=== PATIENT | female | born 1975 | race Caucasian/White ===

== ENCOUNTER 2016-05-04 16:45 | Emergency (ER) | payer OTHER, MEDICAID ==
[2016-02-20 10:51] VITALS: Ht 165.1 cm; Wt 53.5 kg
[~2016-05-04] VITALS: Ht 165.1 cm; Wt 53.5 kg
[~2016-05-04 16:45] MED LIST: ACET325T53 PO; AMLO5TAB4 PO; AMLO5TAB92 PO; ATOV750O4 PO; CALC0.258 PO; CALC667C PO; CAT.2 PO; CHOL2000 PO; DIVA250T34 PO; DOCU-144 PO; HYDR-1189 PO; HYDR-4100 PO; LUBI24CA5 PO; MORP2SYR2 IV; MYCO500T PO; NOR10 PO; ONDA4VIA53 IVP; PRED1TAB PO; PRED5TAB PO; PRO40 PO; SEVE800T8 PO; TACR1CAP PO; TEMA30CA5 PO; TRAM50TA92 PO; [UNRECOGNIZED DRUG - CODE] IVP
[2016-05-04 17:07] VITALS: BP 145/95; PULSE 96; RESP 20; TEMP 97.8; O2SAT 100
[2016-05-04] MEDS ORDERED: chlorproMAZINE HCL 50 MG/ 2 ML AMP IVP ONE (19:30)
[2016-05-04] MEDS ORDERED: DIPHENHYDRAMINE INJ 50 MG/ML VIAL IVP ONE (19:30)
[2016-05-04] MEDS ORDERED: NACL 0.9% 1,000 ML IV ONE (19:30)
[2016-05-04 19:51] LABS: BILIRUBIN,URINE NEGATIVE (NEGATIVE); BLOOD, URINE NEGATIVE (NEGATIVE); CLARITY/URINE CLEAR (CLEAR); GLUCOSE,URINE NEGATIVE (NEGATIVE); KETONES,URINE TRACE (NEGATIVE); LEUKOCYTE ESTERASE ,URINE NEGATIVE (NEGATIVE); NITRITE, URINE NEGATIVE (NEGATIVE); PROTEIN URINE NEGATIVE (NEGATIVE); UROBILINOGEN,URINE 0.2 (0.2-1.0)
[2016-05-04 20:02] LABS: COLOR,URINE STRAW (YELLOW)
[2016-05-04 20:55] LABS: HEMATOCRIT 37.9 % (36-48); HEMOGLOBIN 12.9 g/dL (12.0-16.0); MEAN CORPUSCULAR HEMOGLOBIN 29 pg (27-31); MEAN CORPUSCULAR HGB CONC 34 % (32-36); MEAN CORPUSCULAR VOLUME 85 fL (79.0-98.0); PLATELET COUNT (AUTO) 167 K/uL (130-430); RED BLOOD CELL COUNT(AUTO) 4.44 MIL/uL (4.2-6.2); RED CELL DISTRIBUTION WIDTH 12.6 % (9.0-15.0)
[2016-05-04 21:00] LABS: WHITE BLOOD COUNT (AUTO) 3.3 K/uL (4.8-10.8)
[2016-05-04 21:11] LABS: CALCIUM 9.3 mg/dL (8.4-11.0); CREATININE 0.84 mg/dL (0.55-1.30); POTASSIUM 4.5 mmol/L (3.5-5.1)
[2016-05-04 21:16] LABS: TOTAL BILIRUBIN 0.3 mg/dL (0.0-1.0); TOTAL PROTEIN, SERUM 7.7 g/dL (6.4-8.3)
[2016-05-04 21:23] LABS: ATYPICAL LYMPHOCYTES % 0 % (0-0); BAND % (MANUAL) 19 % (0-6); BASOPHILS % (MANUAL) 0 % (0-2); EOSINOPHILS % (MANUAL) 0 % (0-7); LYMPHOCYTES % (MANUAL) 10 % (20-46); METAMYELOCYTES % 1 % (0-0); MONOCYTES % (MANUAL) 12 % (0-11); MYELOCYTES % 1 % (0-0)
[2016-05-04] MEDS ORDERED: MORPHINE SULFATE 10 MG/ML VIAL IVP ONE (22:00)
[2016-05-04] MEDS ORDERED: ONDANSETRON HCL 4 MG/2 ML VIAL IVP ONE (22:15)
[2016-05-04 22:30] VITALS: BP 116/81; PULSE 88; RESP 20; TEMP 98.8; O2SAT 100
== END 2016-05-04 22:30 | disposition home or self-care (01) ==
LOC: SED 16:45
DX: J06.9 Acute upper respiratory infection, unspecified (principal); G43.909 Migraine, unspecified, not intractable, without status migrainosus; M54.30 Sciatica, unspecified side; I10 Essential (primary) hypertension; Z94.0 Kidney transplant status; Z88.5 Allergy status to narcotic agent; Z88.1 Allergy status to other antibiotic agents
CPT/HCPCS: 36415; 80053; 81003; 81025; 85007; 85027; 86710; 96361; 96374; 96375; 99285; J1200; J2270; J2405; J3230; J7030; 99284

== ENCOUNTER 2016-07-01 16:40 | Outpatient (CLI) | payer OTHER, MEDICAID ==
[~2016-07-01 16:40] MED LIST changes: -ACET325T53 PO; -AMLO5TAB4 PO; -CALC0.258 PO; -CALC667C PO; -CAT.2 PO; -CHOL2000 PO; -DIVA250T34 PO; -HYDR-1189 PO; -HYDR-4100 PO; -LUBI24CA5 PO; -MORP2SYR2 IV; -NOR10 PO; -ONDA4VIA53 IVP; -PRED1TAB PO; -SEVE800T8 PO; -TRAM50TA92 PO; -[UNRECOGNIZED DRUG - CODE] IVP
[2016-07-01 17:46] LABS: BILIRUBIN,URINE NEGATIVE (NEGATIVE); BLOOD, URINE NEGATIVE (NEGATIVE); CLARITY/URINE CLEAR (CLEAR); COLOR,URINE YELLOW (YELLOW); GLUCOSE,URINE NEGATIVE (NEGATIVE); KETONES,URINE NEGATIVE (NEGATIVE); LEUKOCYTE ESTERASE ,URINE NEGATIVE (NEGATIVE); NITRITE, URINE NEGATIVE (NEGATIVE); PROTEIN URINE NEGATIVE (NEGATIVE); UROBILINOGEN,URINE 0.2 (0.2-1.0)
[2016-07-01 17:47] LABS: BASOPHILS % (AUTO) 0.7 % (0.0-2.0); EOSINOPHILS # (AUTO) 0.1 K/uL (0.0-0.4); EOSINOPHILS % (AUTO) 0.8 % (0.0-4.0); HEMATOCRIT 34.5 % (36-48); HEMOGLOBIN 11.7 g/dL (12.0-16.0); LYMPHOCYTES # (AUTO) 0.6 K/uL (1.0-5.5); MEAN CORPUSCULAR HEMOGLOBIN 29 pg (27-31); MEAN CORPUSCULAR HGB CONC 34 % (32-36); MEAN CORPUSCULAR VOLUME 87 fL (79.0-98.0); MONOCYTES # (AUTO) 0.4 K/uL (0.0-1.0); NEUTROPHILS # (AUTO) 5.9 K/uL (1.8-7.7); NEUTROPHILS % (AUTO) 83.5 % (40.0-70.0); PLATELET COUNT (AUTO) 198 K/uL (130-430); RED BLOOD CELL COUNT(AUTO) 3.98 MIL/uL (4.2-6.2); RED CELL DISTRIBUTION WIDTH 13.7 % (9.0-15.0)
[2016-07-01 18:11] LABS: PHOSPHORUS 3.8 mg/dL (2.7-4.5)
[2016-07-02 21:14] LABS: PTH, INTACT 103 pg/mL (15-65)
[2016-07-03 18:06] LABS: TACROLIMUS (FK506) 6.9 ng/mL (2.0-20.0)
== END 2016-07-01 20:05 | disposition home or self-care (01) ==
LOC: SRD 16:40
PROVIDERS: ATTEND Specialist
DX: N18.6 End stage renal disease (principal); E20.9 Hypoparathyroidism, unspecified; I70.90 Unspecified atherosclerosis
CPT/HCPCS: 36415; 80197; 81003; 83735-TC; 83970; 84100-TC; 85025

== ENCOUNTER 2016-08-21 07:59 | Emergency (ER) | payer OTHER, MEDICAID ==
[2016-02-20 10:51] VITALS: Ht 165.1 cm; Wt 53.5 kg
[~2016-08-21] VITALS: Ht 165.1 cm; Wt 53.5 kg
[~2016-08-21 07:59] MED LIST changes: +ACET325T53 PO; +AMLO5TAB4 PO; +CALC0.258 PO; +CALC667C PO; +CAT.2 PO; +CHOL2000 PO; +DIVA250T34 PO; +HYDR-1189 PO; +HYDR-4100 PO; +LUBI24CA5 PO; +MORP2SYR2 IV; +NOR10 PO; +ONDA4VIA53 IVP; +PRED1TAB PO; +SEVE800T8 PO; +TRAM50TA92 PO; +[UNRECOGNIZED DRUG - CODE] IVP
[2016-08-21 08:11] VITALS: BP 134/98; PULSE 77; RESP 16; TEMP 97.7; O2SAT 100
[2016-08-21] MEDS ORDERED: ACETAMINOPHEN 500 MG TABLET PO ONE (08:30)
[2016-08-21 09:16] LABS: BASOPHILS % (AUTO) 0.5 % (0.0-2.0); EOSINOPHILS # (AUTO) 0.2 K/uL (0.0-0.4); EOSINOPHILS % (AUTO) 3.4 % (0.0-4.0); HEMATOCRIT 37.9 % (36-48); HEMOGLOBIN 12.6 g/dL (12.0-16.0); LYMPHOCYTES # (AUTO) 1.1 K/uL (1.0-5.5); LYMPHOCYTES % (AUTO) 24.8 % (20.5-51.5); MEAN CORPUSCULAR HEMOGLOBIN 29 pg (27-31); MEAN CORPUSCULAR HGB CONC 33 % (32-36); MEAN CORPUSCULAR VOLUME 88 fL (79.0-98.0); MONOCYTES # (AUTO) 0.7 K/uL (0.0-1.0); MONOCYTES % (AUTO) 14.7 % (1.7-9.3); NEUTROPHILS # (AUTO) 2.5 K/uL (1.8-7.7); NEUTROPHILS % (AUTO) 56.6 % (40.0-70.0); PLATELET COUNT (AUTO) 215 K/uL (130-430); RED BLOOD CELL COUNT(AUTO) 4.32 MIL/uL (4.2-6.2); RED CELL DISTRIBUTION WIDTH 13.3 % (9.0-15.0); WHITE BLOOD COUNT (AUTO) 4.5 K/uL (4.8-10.8)
[2016-08-21 09:26] LABS: CALCIUM 8.9 mg/dL (8.4-11.0); CREATININE 0.78 mg/dL (0.55-1.30); POTASSIUM 3.8 mmol/L (3.5-5.1)
[2016-08-21 09:29] LABS: INR 1.1 (0.8-1.2); PROTHROMBIN TIME 11.4 SECS (9.5-12.5)
[2016-08-21 09:30] LABS: ALBUMIN 3.9 g/dL (3.4-4.8); TOTAL BILIRUBIN 0.3 mg/dL (0.0-1.0); TOTAL PROTEIN, SERUM 7.1 g/dL (6.4-8.3)
[2016-08-21 09:47] LABS: BILIRUBIN,URINE NEGATIVE (NEGATIVE); BLOOD, URINE NEGATIVE (NEGATIVE); CLARITY/URINE CLEAR (CLEAR); COLOR,URINE YELLOW (YELLOW); GLUCOSE,URINE NEGATIVE (NEGATIVE); KETONES,URINE NEGATIVE (NEGATIVE); LEUKOCYTE ESTERASE ,URINE NEGATIVE (NEGATIVE); NITRITE, URINE NEGATIVE (NEGATIVE); PROTEIN URINE NEGATIVE (NEGATIVE); UROBILINOGEN,URINE 0.2 (0.2-1.0)
[2016-08-21 10:20] VITALS: BP 134/98; PULSE 77; RESP 16; TEMP 97.7; O2SAT 100
== END 2016-08-21 10:20 | disposition home or self-care (01) ==
LOC: SED 07:59
DX: R10.31 Right lower quadrant pain (principal); I12.0 Hypertensive chronic kidney disease with stage 5 chronic kidney disease or end stage renal disease; N18.6 End stage renal disease; Z94.0 Kidney transplant status; Z88.1 Allergy status to other antibiotic agents; Z88.5 Allergy status to narcotic agent
CPT/HCPCS: 36415; 80053; 81003; 81025; 82150-TC; 83605; 83690-TC; 85025; 85610-TC; 85730-TC; 87040-TC; 99285

== ENCOUNTER 2017-01-25 09:59 | Emergency (ER) | payer OTHER, MEDICAID ==
[~2017-01-25] VITALS: Ht 165.1 cm; Wt 52.2 kg
[~2017-01-25 09:59] MED LIST changes: -ACET325T53 PO; -AMLO5TAB4 PO; -CALC0.258 PO; -CALC667C PO; -CAT.2 PO; -CHOL2000 PO; -DIVA250T34 PO; -HYDR-1189 PO; -HYDR-4100 PO; -LUBI24CA5 PO; -MORP2SYR2 IV; -NOR10 PO; -ONDA4VIA53 IVP; -PRED1TAB PO; -SEVE800T8 PO; -TRAM50TA92 PO; -[UNRECOGNIZED DRUG - CODE] IVP
[2017-01-25 10:00] VITALS: BP_SYST 159
[2017-01-25] MEDS ORDERED: KETOROLAC TROMETHAMINE 60 MG/2 ML VIAL IM ONE (10:15)
[2017-01-25] MEDS ORDERED: PROCHLORPERAZINE EDISYLATE 10 MG/2 ML VIAL IM ONE (10:15)
[2017-01-25 10:54] LABS: BILIRUBIN,URINE NEGATIVE (NEGATIVE); BLOOD, URINE NEGATIVE (NEGATIVE); CLARITY/URINE CLEAR (CLEAR); COLOR,URINE YELLOW (YELLOW); GLUCOSE,URINE NEGATIVE (NEGATIVE); KETONES,URINE NEGATIVE (NEGATIVE); LEUKOCYTE ESTERASE ,URINE NEGATIVE (NEGATIVE); NITRITE, URINE NEGATIVE (NEGATIVE); PROTEIN URINE NEGATIVE (NEGATIVE); UROBILINOGEN,URINE 0.2 (0.2-1.0)
[2017-01-25 11:27] LABS: CALCIUM 10.1 mg/dL (8.4-11.0); CREATININE 0.83 mg/dL (0.55-1.30); POTASSIUM 3.8 mmol/L (3.5-5.1)
[2017-01-25] MEDS ORDERED: fentaNYL CITRATE/PF 100 MCG/2 ML AMP EP ONE (11:45)
[2017-01-25] MEDS ORDERED: DIPHENHYDRAMINE INJ 50 MG/ML VIAL IM ONE (11:45)
[2017-01-25 13:27] VITALS: BP_SYST 101
== END 2017-01-25 13:27 | disposition home or self-care (01) ==
LOC: SED 09:59
DX: G43.909 Migraine, unspecified, not intractable, without status migrainosus (principal); R10.31 Right lower quadrant pain; I10 Essential (primary) hypertension; M32.9 Systemic lupus erythematosus, unspecified; Z88.1 Allergy status to other antibiotic agents
CPT/HCPCS: 36415; 80048; 81003; 96372; 99284; J0780; J1200; J1885; J3010

== ENCOUNTER 2017-04-15 10:21 | Emergency (ER) | payer OTHER, MEDICAID ==
[~2017-04-15] VITALS: Ht 165.1 cm; Wt 54.0 kg
[2017-04-15 10:21] VITALS: BP_SYST 140
--- NOTE | 2017-04-15 10:21 | NUR ---
Placed in room 08 . Placed on rn cardiac rehab, blood pressure machine and pulse oximeter. To gown for exam. Side rails up. Report given to Thom.
--- NOTE | 2017-04-15 10:21 | NUR ---
Pt report received from FREIDA Gong. Pt c/o RLQ and Right flank pain with N/V since yesterday. Pt with hx of Kidney transplant in 2016.
--- NOTE | 2017-04-15 10:30 | NUR ---
ER at bedside examining patient.
--- NOTE | 2017-04-15 10:45 | NUR ---
# 22 gauge angiocath placed to LFA. Use of asceptic technique. Opsite placed over site. Blood return noted. Blood for lab drawn from site. Flushed with 10 cc of normal saline. No evidence of infiltration noted. Patient tolerated well.
[2017-04-15 10:52] LABS: BASOPHILS % (AUTO) 0.6 % (0.0-2.0); EOSINOPHILS # (AUTO) 0.1 K/uL (0.0-0.4); EOSINOPHILS % (AUTO) 2.1 % (0.0-4.0); HEMATOCRIT 39.7 % (36-48); HEMOGLOBIN 13.1 g/dL (12.0-16.0); LYMPHOCYTES # (AUTO) 1.8 K/uL (1.0-5.5); LYMPHOCYTES % (AUTO) 29.4 % (20.5-51.5); MEAN CORPUSCULAR HEMOGLOBIN 29 pg (27-31); MEAN CORPUSCULAR HGB CONC 33 % (32-36); MEAN CORPUSCULAR VOLUME 89 fL (79.0-98.0); MONOCYTES # (AUTO) 0.9 K/uL (0.0-1.0); MONOCYTES % (AUTO) 14.5 % (1.7-9.3); NEUTROPHILS # (AUTO) 3.2 K/uL (1.8-7.7); NEUTROPHILS % (AUTO) 53.4 % (40.0-70.0); PLATELET COUNT (AUTO) 238 K/uL (130-430); RED BLOOD CELL COUNT(AUTO) 4.47 MIL/uL (4.2-6.2); RED CELL DISTRIBUTION WIDTH 13.1 % (9.0-15.0)
[2017-04-15 11:06] LABS: CALCIUM 9.9 mg/dL (8.4-11.0); CREATININE 0.86 mg/dL (0.55-1.30); POTASSIUM 4.4 mmol/L (3.5-5.1)
[2017-04-15 11:11] LABS: ALBUMIN 4.3 g/dL (3.4-4.8); TOTAL BILIRUBIN 0.4 mg/dL (0.0-1.0)
[2017-04-15] MEDS ORDERED: NACL 0.9% 1,000 ML IV ONE (11:15)
[2017-04-15] MEDS ORDERED: ONDANSETRON HCL 4 MG/2 ML VIAL IVP ONE (11:15)
[2017-04-15] MEDS ORDERED: MORPHINE 2 MG/ML INJ. SYRINGE IVP ONE (11:30)
[2017-04-15] MEDS ORDERED: DIPHENHYDRAMINE INJ 50 MG/ML VIAL ONE (11:35)
[2017-04-15] MEDS ORDERED: DIPHENHYDRAMINE INJ 50 MG/ML VIAL IVP ONE (11:45)
[2017-04-15 13:01] LABS: BILIRUBIN,URINE NEGATIVE (NEGATIVE); BLOOD, URINE NEGATIVE (NEGATIVE); CLARITY/URINE CLEAR (CLEAR); COLOR,URINE YELLOW (YELLOW); GLUCOSE,URINE NEGATIVE (NEGATIVE); KETONES,URINE NEGATIVE (NEGATIVE); LEUKOCYTE ESTERASE ,URINE NEGATIVE (NEGATIVE); NITRITE, URINE NEGATIVE (NEGATIVE); PH,URINE 5.5 (5.0-8.0); PROTEIN URINE NEGATIVE (NEGATIVE); UROBILINOGEN,URINE 0.2 (0.2-1.0)
--- NOTE | 2017-04-15 13:09 | NUR ---
recv report from FREIDA Tomas; pt off unit to Radiology
--- NOTE | 2017-04-15 13:18 | NUR ---
pt back to unit from radiology; resting comfortably in bed; VSS
--- NOTE | 2017-04-15 14:37 | NUR ---
Patient given written and verbal discharge instructions and verbalizes understanding. ER MD discussed with patient the results and treatment provided. Patient in stable condition. ID arm band removed. IV catheter removed intact and dressing applied, no active bleeding. Patient educated on pain management and to follow up with PMD. Pain Scale 3/10. Opportunity for questions provided and answered.
[2017-04-15 14:39] VITALS: BP_SYST 109
== END 2017-04-15 14:37 | disposition home or self-care (01) ==
LOC: SED 10:21
DX: M79.1 Myalgia (principal); I10 Essential (primary) hypertension; Z99.2 Dependence on renal dialysis; Z94.0 Kidney transplant status; Z90.89 Acquired absence of other organs; Z88.1 Allergy status to other antibiotic agents; Z88.5 Allergy status to narcotic agent; Z79.899 Other long term (current) drug therapy
CPT/HCPCS: 36415; 71045; 74176; 80053; 81003; 83690; 84484; 85025; 93005; 96361; 96374; 96375; 99285; J1200; J2270; J2405; J7030

== ENCOUNTER 2017-12-29 18:44 | Emergency (ER) | payer OTHER, MEDICAID ==
[~2017-12-29] VITALS: Ht 165.1 cm; Wt 54.4 kg
[2017-12-29 18:45] VITALS: BP_SYST 131
[2017-12-29] MEDS ORDERED: MORPHINE 4 MG/ML INJ. SYRINGE IVP ONE (19:45)
[2017-12-29] MEDS ORDERED: LIDOCAINE 1%, 20 ML MDV 20 ML ONE (19:54)
[2017-12-29 20:18] LABS: BILIRUBIN,URINE NEGATIVE (NEGATIVE); BLOOD, URINE NEGATIVE (NEGATIVE); CLARITY/URINE CLEAR (CLEAR); COLOR,URINE YELLOW (YELLOW); GLUCOSE,URINE NEGATIVE (NEGATIVE); KETONES,URINE NEGATIVE (NEGATIVE); LEUKOCYTE ESTERASE ,URINE NEGATIVE (NEGATIVE); NITRITE, URINE NEGATIVE (NEGATIVE); PROTEIN URINE NEGATIVE (NEGATIVE); UROBILINOGEN,URINE 0.2 (0.2-1.0)
[2017-12-29] MEDS ORDERED: ONDANSETRON HCL 4 MG/2 ML VIAL IVP ONE (20:30)
[2017-12-29] MEDS ORDERED: DIPHENHYDRAMINE INJ 50 MG/ML VIAL IVP ONE ×2 (20:30→21:00)
[2017-12-29 20:34] LABS: BASOPHILS % (AUTO) 0.4 % (0.0-2.0); EOSINOPHILS % (AUTO) 0.4 % (0.0-4.0); HEMATOCRIT 36.2 % (36-48); HEMOGLOBIN 12.1 g/dL (12.0-16.0); LYMPHOCYTES % (AUTO) 12.3 % (20.5-51.5); MEAN CORPUSCULAR HEMOGLOBIN 30 pg (27-31); MEAN CORPUSCULAR HGB CONC 34 % (32-36); MEAN CORPUSCULAR VOLUME 90 fL (79.0-98.0); MONOCYTES # (AUTO) 0.3 K/uL (0.0-1.0); NEUTROPHILS # (AUTO) 7.2 K/uL (1.8-7.7); NEUTROPHILS % (AUTO) 82.9 % (40.0-70.0); PLATELET COUNT (AUTO) 258 K/uL (130-430); RED BLOOD CELL COUNT(AUTO) 4.04 MIL/uL (4.2-6.2); RED CELL DISTRIBUTION WIDTH 13.2 % (9.0-15.0); WHITE BLOOD COUNT (AUTO) 8.5 K/uL (4.8-10.8)
[2017-12-29 20:44] LABS: CALCIUM 9.5 mg/dL (8.4-11.0); CREATININE 0.74 mg/dL (0.55-1.30); POTASSIUM 3.6 mmol/L (3.5-5.1)
[2017-12-29 20:49] LABS: ALBUMIN 3.9 g/dL (3.4-4.8); TOTAL BILIRUBIN 0.4 mg/dL (0.0-1.0)
[2017-12-29] MEDS ORDERED: fentaNYL CITRATE/PF 100 MCG/2 ML AMP IVP ONE (21:15)
[2017-12-29] MEDS ORDERED: LACTULOSE 20 GM/30 ML UDC PO ONE (21:15)
[2017-12-29 22:58] VITALS: BP_SYST 120
== END 2017-12-29 22:58 | disposition home or self-care (01) ==
LOC: SED 18:44
DX: K59.00 Constipation, unspecified (principal); E87.1 Hypo-osmolality and hyponatremia; I10 Essential (primary) hypertension; Z79.899 Other long term (current) drug therapy; Z88.6 Allergy status to analgesic agent; Z88.1 Allergy status to other antibiotic agents
CPT/HCPCS: 36415; 74176; 80053; 81003; 81025; 85025; 96374; 96375; 99285; J1200; J2001; J2270; J2405; J3010

== ENCOUNTER 2018-03-28 11:15 | Emergency (ER) | payer OTHER, MEDICAID ==
[~2018-03-28] VITALS: Ht 165.1 cm; Wt 57.6 kg
[2018-03-28 11:24] VITALS: BP_SYST 128
--- NOTE | 2018-03-28 11:42 | NUR ---
Patient to ER bed 3 to gown for evaluation. Side rails up. Report given to Osiel GUAN.
--- NOTE | 2018-03-28 12:00 | NUR ---
Pt presents to ER c/o migraine, nausea, and "7lb weight gain in the past 3 weeks". Pt denies any other symptoms / complaints at this time. Pt AOX4, ambulatory, appears lethargic / weak, no signs of acute distress.
--- NOTE | 2018-03-28 12:05 | NUR ---
ANTONIO Richmond at bedside examining patient.
--- NOTE | 2018-03-28 12:10 | NUR ---
Medication given as ordered. well tolerated.
[2018-03-28 12:15] LABS: BILIRUBIN,URINE NEGATIVE (NEGATIVE); BLOOD, URINE NEGATIVE (NEGATIVE); CLARITY/URINE CLEAR (CLEAR); COLOR,URINE YELLOW (YELLOW); GLUCOSE,URINE NEGATIVE (NEGATIVE); KETONES,URINE NEGATIVE (NEGATIVE); LEUKOCYTE ESTERASE ,URINE 1+ (NEGATIVE); NITRITE, URINE NEGATIVE (NEGATIVE); PROTEIN URINE NEGATIVE (NEGATIVE); UROBILINOGEN,URINE 0.2 (0.2-1.0)
[2018-03-28] MEDS ORDERED: NACL 0.9% 1,000 ML IV ONE (12:15)
[2018-03-28] MEDS ORDERED: DIPHENHYDRAMINE INJ 50 MG/ML VIAL IVP ONE ×2 (12:15→13:45)
[2018-03-28] MEDS ORDERED: fentaNYL CITRATE/PF 100 MCG/2 ML AMP IVP ONE ×2 (12:15→13:45)
[2018-03-28] MEDS ORDERED: ONDANSETRON HCL 4 MG/2 ML VIAL IVP ONE (12:15)
[2018-03-28 12:41] LABS: BASOPHILS % (AUTO) 0.6 % (0.0-2.0); EOSINOPHILS # (AUTO) 0.1 K/uL (0.0-0.4); EOSINOPHILS % (AUTO) 2.4 % (0.0-4.0); HEMATOCRIT 33.3 % (36-48); HEMOGLOBIN 11.3 g/dL (12.0-16.0); LYMPHOCYTES # (AUTO) 1.4 K/uL (1.0-5.5); LYMPHOCYTES % (AUTO) 40.5 % (20.5-51.5); MEAN CORPUSCULAR HEMOGLOBIN 33 pg (27-31); MEAN CORPUSCULAR HGB CONC 34 % (32-36); MEAN CORPUSCULAR VOLUME 96 fL (79.0-98.0); MONOCYTES # (AUTO) 0.4 K/uL (0.0-1.0); MONOCYTES % (AUTO) 10.7 % (1.7-9.3); NEUTROPHILS # (AUTO) 1.6 K/uL (1.8-7.7); PLATELET COUNT (AUTO) 228 K/uL (130-430); RED BLOOD CELL COUNT(AUTO) 3.48 MIL/uL (4.2-6.2); RED CELL DISTRIBUTION WIDTH 19.4 % (9.0-15.0); WHITE BLOOD COUNT (AUTO) 3.5 K/uL (4.8-10.8)
[2018-03-28 12:51] LABS: BACTERIA,URINE RARE /HPF (None Seen); RBC,URINE 0-3 /HPF (0-3)
[2018-03-28 12:56] LABS: CALCIUM 9.2 mg/dL (8.4-11.0); CREATININE 1.03 mg/dL (0.55-1.30); POTASSIUM 3.2 mmol/L (3.5-5.1)
[2018-03-28 13:02] LABS: ALBUMIN 3.7 g/dL (3.4-4.8); TOTAL BILIRUBIN 0.6 mg/dL (0.0-1.0)
--- NOTE | 2018-03-28 13:15 | NUR ---
patient c/o pain. md notified.
[2018-03-28 13:27] LABS: NEUTROPHILS % (AUTO) 45.8 % (40.0-70.0)
[2018-03-28] MEDS ORDERED: POTASSIUM CHLORIDE 20 MEQ TAB.PRT.SR PO ONE (13:45)
[2018-03-28] MEDS ORDERED: SUMAtriptan SUCCINATE 6 MG/0.5 ML VIAL SUBCUT ONE (14:30)
--- NOTE | 2018-03-28 14:35 | NUR ---
patient in pain. notified provider
--- NOTE | 2018-03-28 15:00 | NUR ---
medication provided as ordered.
--- NOTE | 2018-03-28 15:32 | NUR ---
Patient given written and verbal discharge instructions and verbalizes understanding. ER MD discussed with patient the results and treatment provided. Patient in stable condition. ID arm band removed. Rx Imitrex given. Patient educated on pain management and to follow up with PMD. Pain Scale 0/10. Opportunity for questions provided and answered. Medication side effect fact sheet provided.
[2018-03-28 15:33] VITALS: BP_SYST 125
== END 2018-03-28 15:33 | disposition home or self-care (01) ==
LOC: SED 11:15
DX: G43.909 Migraine, unspecified, not intractable, without status migrainosus (principal); D64.9 Anemia, unspecified; E87.6 Hypokalemia; R03.0 Elevated blood-pressure reading, without diagnosis of hypertension; Z88.1 Allergy status to other antibiotic agents; Z88.6 Allergy status to analgesic agent; Z79.899 Other long term (current) drug therapy
CPT/HCPCS: 36415; 80053; 81000; 85025; 87086; 96372; 96374; 96375; 96376; 99283; J1200; J2405; J3010; J3030; J7030

== ENCOUNTER 2020-12-11 14:57 | Emergency (ER) | payer MEDICAID, SELFPAY ==
[~2020-12-11] VITALS: Ht 165.1 cm; Wt 63.5 kg
[~2020-12-11 14:57] MED LIST changes: -TACR1CAP PO; +TACR1CAP2 PO
[2020-12-11 15:00] VITALS: BP_SYST 142
--- NOTE | 2020-12-11 15:00 | NUR ---
BROUGHT TO OUTSIDE TENT AND TRIAGED. AWAITING ER BED.
--- NOTE | 2020-12-11 15:10 | NUR ---
PT AAO AND AMBULATORY REPORTING COUGH, CONGESTION, SORE THROAT, AND MIGRAINE. PT REPORTS THAT SHE WAS POSSIBLY EXPOSED TO COVID FROM FAMILY. PT REPORTS PAIN 7/10 ON PAIN SCALE.
--- NOTE | 2020-12-11 15:25 | NUR ---
DR. MORGAN TO TENT TO ASSESS.
[2020-12-11] MEDS ORDERED: DEXAMETHASONE SOD PHOSPHATE 10 MG/ML VIAL IVP ONE (15:30)
[2020-12-11] MEDS ORDERED: KETOROLAC TROMETHAMINE 60 MG/2 ML VIAL IM ONE (15:30)
[2020-12-11] MEDS ORDERED: KETOROLAC TROMETHAMINE 30 MG VIAL IVP ONE (15:30)
--- NOTE | 2020-12-11 15:55 | NUR ---
Patient given written and verbal discharge instructions and verbalizes understanding. DR. CATHY ALVAREZ MD discussed with patient the results and treatment provided. Patient in stable condition. ID arm band removed. Patient educated on pain management and to follow up with PMD. Pain Scale 2/10. Opportunity for questions provided and answered.
== END 2020-12-11 15:55 | disposition home or self-care (01) ==
LOC: SED 14:57
DX: B34.9 Viral infection, unspecified (principal); G43.909 Migraine, unspecified, not intractable, without status migrainosus; I10 Essential (primary) hypertension; Z88.1 Allergy status to other antibiotic agents; Z88.8 Allergy status to other drugs, medicaments and biological substances; Z79.899 Other long term (current) drug therapy; Z20.822 Contact with and (suspected) exposure to COVID-19
CPT/HCPCS: 96372; 99283; C9803; J1885; U0003

== ENCOUNTER 2022-10-26 16:45 | Emergency (ER) | payer MEDICAID ==
[~2022-10-26] VITALS: Ht 162.6 cm; Wt 70.8 kg
[2022-10-26 17:11] VITALS: BP_SYST 150; PULSE 98; O2SAT 98
--- NOTE | 2022-10-26 17:18 | NUR ---
Patient triaged and placed in waiting room. C/O Diarrhea, headache, lightheadedness, joint pain X1 day. VSS and patient appears in no acute distress at this time. Accompanied by self, awaiting available bed, and MD notified of need for MSE.
--- NOTE | 2022-10-26 18:50 | NUR ---
PT DID NOT WANT TO WAIT, LEFT WITHOUT BEING SEEN
--- NOTE | 2022-10-26 19:23 | NUR ---
made call out to ER and lobby, no answer lwbs by physician
== END 2022-10-26 18:50 | disposition left against medical advice (07) ==
LOC: SED 16:45
DX: R19.7 Diarrhea, unspecified (principal); R53.1 Weakness; R51.9 Headache, unspecified; Z53.21 Procedure and treatment not carried out due to patient leaving prior to being seen by health care provider
CPT/HCPCS: 99281